=== PATIENT | female | born 1970 | race Caucasian/White ===

== ENCOUNTER 2017-05-29 00:50 | Emergency (ER) | payer OTHER, MEDICAID ==
[~2017-05-29] VITALS: Ht 170.2 cm; Wt 86.2 kg
[~2017-05-29 00:50] MED LIST: CARB100C79 PO; PHEN100C4 PO
[2017-05-29 00:55] VITALS: BP 156/89
--- NOTE | 2017-05-29 01:27 | NUR ---
PT [facility]ONAS BLS. TAKEN TO BED 3
[2017-05-29 01:29] LABS: HEMATOCRIT 38.8 % (36-48); HEMOGLOBIN 12.7 g/dL (12.0-16.0); MEAN CORPUSCULAR HEMOGLOBIN 29 pg (27-31); MEAN CORPUSCULAR HGB CONC 33 g/dL (33-37); MEAN CORPUSCULAR VOLUME 88 fL (80-94); PLATELET COUNT (AUTO) 232 K/uL (140-450); RED BLOOD CELL COUNT(AUTO) 4.42 MIL/uL (4.20-5.40); RED CELL DISTRIBUTION WIDTH 13.1 % (11.6-13.7); WHITE BLOOD COUNT (AUTO) 10.1 K/uL (4.8-10.8)
[2017-05-29 01:31] LABS: ANION GAP 9.5 (8-16); CARBON DIOXIDE 28.3 mmol/L (21-32); CHLORIDE 105 mmol/L (98-107); CREATININE 0.8 mg/dL (0.6-1.3); GFR ARICAN-AMERICAN 99 mL/min (>90); GLUCOSE 118 mg/dL (74-106); POTASSIUM 3.8 mmol/L (3.5-5.1); SODIUM SERUM 139 mmol/L (136-145); UREA NITROGEN, BLOOD 13 mg/dL (7-18)
[2017-05-29 01:35] LABS: EOSINOPHILS % (MANUAL) 1 % (0-4); LYMPHOCYTES % (MANUAL) 23 % (20-46); MONOCYTES % (MANUAL) 2 % (5-12)
[2017-05-29 01:37] LABS: ALBUMIN 3.5 g/dL (3.4-5.0); ASPARTATE AMINOTRANSFERASE 19 U/L (15-37); TOTAL BILIRUBIN 0.2 mg/dL (0.0-1.0)
[2017-05-29 01:38] LABS: PHENYTOIN (DILANTIN) < 0.5 ug/ml (10.0-20.0)
[2017-05-29] MEDS ORDERED: PHENYTOIN 100 MG/2 ML VIAL IVP ONE (01:45)
--- NOTE | 2017-05-29 02:00 | NUR ---
PT BIBA POST SEIZURE. PER EMS PT WAS HOME SLEEPING WHEN FAMILY HEARD LOUD NOISES COMING FROM PTS ROOM AND FAMILY FOUND PT ON FLOOR SEIZURE WAS UNWITNESSED. PER EMS PT WAS POSTICTAL UPON ARRIVAL. PT PRESENTED TO THE ER AAO X4 AND ACTING APPROPRIATE FOR PTS BASELINE. PT WAS SEEN EARLIER IN ER POST SEIZURE. SEIZURE PRECAUTIONS IN PLACE. ER MD NOTIFIED OF PTS STATUS. PT IS RESTING IN BED. VSS.
[2017-05-29] MEDS ORDERED: PHENYTOIN 250 MG/5 ML VIAL IV ONE (02:11)
[2017-05-29] MEDS ORDERED: PHENYTOIN 1,000 MG in NACL 0.9% 100 ML IV ONE (02:30)
--- NOTE | 2017-05-29 02:32 | NUR ---
Vesna keenan in ED - 05/29/[address] at [address] Obregon evaluating patient at bedside.
--- NOTE | 2017-05-29 02:32 | NUR ---
Patient being evaluated by Dr. Obregon at bedside.
[2017-05-29 03:58] VITALS: BP 102/65
--- NOTE | 2017-05-29 03:58 | NUR ---
Taxi called for patient. Pt will be waiting in ER bed 3 until taxi arrives.
--- NOTE | 2017-05-29 04:08 | NUR ---
Pt waiting in ER bed for taxi at this time. Will keep patient on seizure precautions until taxi arrives and pt can be discharged.
--- NOTE | 2017-05-29 04:45 | NUR ---
IV removed, catheter intact and site benign. Applied folded 4x4 gauze and tape to stop bleeding.
--- NOTE | 2017-05-29 04:46 | NUR ---
Patient discharged with v/s stable. Written and verbal after care instructions given and explained. Patient alert, oriented and verbalized understanding of instructions. Ambulatory with steady gait. All questions addressed prior to discharge. ID band removed. Patient advised to follow up with PMD. Rx of dilantin 100mg given. Patient educated on indication of medication including possible reaction and side effects. Opportunity to ask questions provided and answered.
== END 2017-05-29 04:46 | disposition home or self-care (01) ==
LOC: MED 00:50
DX: R56.9 Unspecified convulsions (principal)
CPT/HCPCS: 36415; 80053; 80156; 80185; 85025; 96365; 99284; J1165